=== PATIENT | male | born 1980 | race Caucasian/White ===

== ENCOUNTER 2016-12-26 13:33 | Observation (INO) ==
[2016-12-26] MEDS ORDERED: *HR* LORazepam 2 MG/ML VIAL IVP ONE (13:48)
[2016-12-26] MEDS ORDERED: *HR* LORazepam 2 MG/ML VIAL IM ONE ×2 (13:54→18:48)
--- NOTE | 2016-12-26 14:04 | Emergency Department Note ---
Disposition Clinical Impression: Suicidal ideation, Homicidal ideation Disposition: Admitted As Inpatient Condition: Fair Referrals: NO,PCP [Primary Care Provider] - Forms: ED Satisfaction Letter Time of Disposition: 18:35 Psych HPI - General Chief Complaint: ED Psychiatric Symptoms Stated Complaint: HI/METH Source: patient, EMS Nursing Notes Reviewed: Yes Vital Signs Reviewed: Yes - History of Present Illness HPI Narrative: Patient is a 36-year-old male who presents to [facility] ED with a chief complaint of homicidal and suicidal ideation. States he last took meth approximately 2 days ago. States he has been having thoughts of killing someone who wronged him in the past as well as killing himself. Denies having an active plan. Denies any nausea, vomiting, fever or chills. No chest pain, shortness of breath, abdominal pain, changes in urination or bowel movements. Patient is not on any medications currently. Pt complaint: suicidal ideation, other (Homicidal ideation) Duration: getting worse Improves with: none Worsens with: none Alleged intoxication: No Associated Psychiatric Symptoms: suicidal ideation, homicidal ideation, visual hallucinations (seeing people) Associated symptoms: Reports: denies other symptoms. Denies: headache, shortness of breath, nausea, vomiting Traumatic symptoms: denies traumatic injury Treatments prior to arrival: none Self harm or harm to others: admits thoughts of self harm, admits thoughts of harming others - Related Data Previous Rx's Medication Instructions Recorded Albuterol Sulfate [Albuterol 2 puff IH Q4HR #1 hfa.aer.ad 01/20/16 Inhaler] Levofloxacin [Levaquin] 750 mg PO DAILY 10 Days 01/20/16 Cyclobenzaprine [Flexeril] 10 mg PO HS PRN #5 tablet 03/13/16 Amoxicillin/Clavulanate [Augmentin] 875 mg PO BIDWM #20 tablet 08/28/16 Brompheniramine/Pseudoephed/Dm 5 ml PO Q6H #240 syrup 08/28/16 [Bromfed Dm Cough Syrup] Allergies Allergy/AdvReac Type Severity Reaction Status Date / Time No Known Allergies Allergy Verified 01/20/16 16:38 All systems ED: reviewed and negative except as stated. Past Medical History - Past Medical History Attestation: Yes The following information was validated with the patient. Source: patient Medical history: Reports: no medical history Psychiatric history: Reports: no psych history - Social History Smoking Status: Current every day smoker Smokeless Tobacco Status: Yes Alcohol use: Reports: none Drug use: Reports: cocaine, opiates, methamphetamine Physical Exam - General Limitations: no limitations General appearance: alert, anxious - Head Head exam: atraumatic, normocephalic, normal inspection - Eye Eye exam: Present: normal appearance, PERRL, EOMI - ENT ENT exam: normal exam, normal oropharynx, mucous membranes moist - Neck Neck exam: Present: normal inspection, full ROM, trachea midline - Chest Chest inspection: Present: normal inspection, symmetric chest wall rise - Respiratory Respiratory exam: Present: normal lung sounds bilaterally - Cardiovascular Cardiovascular exam: Present: regular rate, normal rhythm, normal heart sounds - Abdominal Exam Abdominal exam: Present: soft, Non-Tender. Absent: tenderness, distention, guarding, rebound, rigidity - Extremities Exam Extremities exam: Present: normal inspection, full ROM. Absent: tenderness, pedal edema - Back Exam Back exam: Present: normal inspection, full ROM. Absent: tenderness - Neurological Exam Neurological exam: Present: alert, oriented X3 - Psychiatric Psychiatric exam: Present: normal affect, normal mood - Skin Skin exam: Present: warm, dry, intact, normal color Course Course Narrative: Patient seen and examined. Homicidal and suicidal ideation. We will medically clear then call psych 1A. patient did have what appears to be body jerking motions. He was given 1 mg of IM Ativan. - Reevaluation(s) Reevaluation #1: Patient wanting to sign himself out AMA. We will need to pink slip him due to his homicidal and suicidal ideation. Time: 15:25 Reevaluation #2: Patient's urine positive for amphetamines, opiates, cocaine. Otherwise lab work unremarkable. Patient is medically cleared for psych consultation. 1A called. Time: 16:00 Reevaluation #3: Patient has been accepted for admission by psychiatry. Bed request submitted. Time: 18:34 Vital Signs Temperature 97.9 F 12/26/16 13:35 Pulse Rate 95 12/26/16 13:35 Respiratory Rate 20 12/26/16 13:35 Blood Pressure 130/85 12/26/16 13:35 O2 Sat by Pulse Oximetry 97 12/26/16 13:35 Temperature 97.9 F 12/26/16 13:35 Pulse Rate 95 12/26/16 13:35 Respiratory Rate 20 12/26/16 13:35 Blood Pressure 130/85 12/26/16 13:35 O2 Sat by Pulse Oximetry 97 12/26/16 13:35 Oxygen Delivery Oxygen Delivery Room Air Psych - Medical Records Medical records reviewed: Yes I reviewed the patient's medical records. - Lab Data Lab results reviewed: Yes I reviewed the patient's lab results. Result diagrams: 12/26/16 14:25 12/26/16 14:25 Lab Results 12/26/16 12/26/16 12/26/16 Range/Units 14:25 14:25 15:12 WBC 9.9 (4.3-11.1) K/mcL RBC 4.57 (4.19-5.50) M/mcL Hgb 13.7 (12.9-16.9) g/dL Hct 40.5 (37.5-50.1) % MCV 88.6 (83.0-100.0) fL MCH 30.0 (28.0-33.3) pg MCHC 33.8 (31.6-35.5) g/dL RDW 12.1 (11.5-14.5) % Plt Count 226 (140-400) K/mcL MPV 9.6 (9.4-12.4) fL Immature Gran % 0.3 (0-4) % Seg Neutrophils % 65.0 % Lymphocytes % 20.5 % Monocytes % 8.5 % Eosinophils % 5.4 % Basophils % 0.3 % Neutrophils # 6.4 (1.6-8.9) K/mcL Lymphocytes # 2.0 (0.6-4.6) K/mcL Monocytes # 0.8 (0.0-1.3) K/mcL Eosinophils # 0.5 (0.0-0.6) K/mcL Basophils # 0.0 (0.0-0.2) K/mcL Immature Plt Fraction 2.3 (1.1-6.1) % Sodium 142 (136-145) mEq/L Potassium 3.7 (3.5-4.5) mEq/L Chloride 107 (98-109) mEq/L Carbon Dioxide 26 (19-29) mEq/L BUN 10 (8-26) mg/dL Creatinine 0.93 (0.72-1.25) mg/dL Est GFR ( Amer) > 60 (> 60) Est GFR (Non-Af Amer) > 60 (> 60) BUN/Creatinine Ratio 11 (6-26) Glucose 106 H (70-99) mg/dL Calculated Osmolality 293 (280-300) Calcium 9.0 (8.6-10.8) mg/dL TSH 2.025 (0.350-4.840) mcIU/mL Urine Color Dark Yellow (Yellow) Urine Clarity Clear (Clear) Urine pH 6.5 (5.0-8.0) pH Units Ur Specific [place] > 1.030 H (1.010-1.025) Urine Protein Trace (Neg-Trace) mg/dL Urine Glucose (UA) Normal (Normal) mg/dL Urine Ketones Trace H (Negative) mg/dL Urine Blood Negative (Negative) Urine Nitrite Negative (Negative) Urine Bilirubin Small H (Negative) Urine Urobilinogen Normal (Normal) mg/dL Ur Leukocyte Esterase Negative (Negative) Urine Microscopic RBC 0-3 (0-3) per hpf Urine Microscopic WBC 0-3 (0-3) per hpf Ur Squamous Epith Cells Moderate H (None-Few) per lpf Urine Bacteria None Seen (None-Few) per hpf Hyaline Casts None Seen (None-Few) per lpf Salicylates < 5.0 L (15-30) mg/dL Urine Opiates Screen (Dlzqts=782) ng/mL Acetaminophen < 1.0 L (10-30) mcg/mL Ur Barbiturates Screen (Jlsrkx=486) ng/mL Ur Phencyclidine Scrn (Cutoff=25) ng/mL Ur Amphetamines Screen (Dovpql=0648) ng/mL U Benzodiazepines Scrn (Njvxpp=536) ng/mL Urine Cocaine Screen (Cutoff= 300) ng/mL U Marijuana (THC) Screen (Cutoff = 50) ng/mL Ethyl Alcohol < 10 (0-10) mg/dL 12/26/16 Range/Units 15:12 WBC (4.3-11.1) K/mcL RBC (4.19-5.50) M/mcL Hgb (12.9-16.9) g/dL Hct (37.5-50.1) % MCV (83.0-100.0) fL MCH (28.0-33.3) pg MCHC (31.6-35.5) g/dL RDW (11.5-14.5) % Plt Count (140-400) K/mcL MPV (9.4-12.4) fL Immature Gran % (0-4) % Seg Neutrophils % % Lymphocytes % % Monocytes % % Eosinophils % % Basophils % % Neutrophils # (1.6-8.9) K/mcL Lymphocytes # (0.6-4.6) K/mcL Monocytes # (0.0-1.3) K/mcL Eosinophils # (0.0-0.6) K/mcL Basophils # (0.0-0.2) K/mcL Immature Plt Fraction (1.1-6.1) % Sodium (136-145) mEq/L Potassium (3.5-4.5) mEq/L Chloride (98-109) mEq/L Carbon Dioxide (19-29) mEq/L BUN (8-26) mg/dL Creatinine (0.72-1.25) mg/dL Est GFR ( Amer) (> 60) Est GFR (Non-Af Amer) (> 60) BUN/Creatinine Ratio (6-26) Glucose (70-99) mg/dL Calculated Osmolality (280-300) Calcium (8.6-10.8) mg/dL TSH (0.350-4.840) mcIU/mL Urine Color (Yellow) Urine Clarity (Clear) Urine pH (5.0-8.0) pH Units Ur Specific [place] (1.010-1.025) Urine Protein (Neg-Trace) mg/dL Urine Glucose (UA) (Normal) mg/dL Urine Ketones (Negative) mg/dL Urine Blood (Negative) Urine Nitrite (Negative) Urine Bilirubin (Negative) Urine Urobilinogen (Normal) mg/dL Ur Leukocyte Esterase (Negative) Urine Microscopic RBC (0-3) per hpf Urine Microscopic WBC (0-3) per hpf Ur Squamous Epith Cells (None-Few) per lpf Urine Bacteria (None-Few) per hpf Hyaline Casts (None-Few) per lpf Salicylates (15-30) mg/dL Urine Opiates Screen Positive H (Ddrcqx=227) ng/mL Acetaminophen (10-30) mcg/mL Ur Barbiturates Screen Negative (Bhjfqh=436) ng/mL Ur Phencyclidine Scrn Negative (Cutoff=25) ng/mL Ur Amphetamines Screen Positive H (Nedezc=2923) ng/mL U Benzodiazepines Scrn Negative (Yjehms=024) ng/mL Urine Cocaine Screen Positive H (Cutoff= 300) ng/mL U Marijuana (THC) Screen Negative (Cutoff = 50) ng/mL Ethyl Alcohol (0-10) mg/dL Psychiatric Medical Clearance - Medical Clearance Checklist Does the patient have a NEW psychiatric condition?: Yes Any abnormalities indicating possible medical illness?: No Any history of medical issues?: No Medical History: No Social History Section defined Any abnormal vital signs prior to transfer?: No Current Vitals: Last Vital Signs Temp 97.9 F 12/26/16 13:35 Pulse 95 12/26/16 13:35 Resp 20 12/26/16 13:35 BP 130/85 12/26/16 13:35 Pulse Ox 97 12/26/16 13:35 Is the patient intoxicated or cognitively impaired?: No Psychiatric Lab Panel: Drug Levels and Toxicity 12/26/16 12/26/16 14:25 15:12 Urine Opiates Screen Positive H Acetaminophen < 1.0 L Ur Barbiturates Screen Negative Ur Phencyclidine Scrn Negative Ur Amphetamines Screen Positive H U Benzodiazepines Scrn Negative Urine Cocaine Screen Positive H U Marijuana (THC) Screen Negative Ethyl Alcohol < 10 Any abnormalities on the physical exam?: No Any abnormal labs?: Yes (UDS) Abnormal Labs: Abnormal lab results Glucose 106 mg/dL (70-99) H 12/26/16 14:25 Ur Specific [place] > 1.030 (1.010-1.025) H 12/26/16 15:12 Urine Ketones Trace mg/dL (Negative) H 12/26/16 15:12 Urine Bilirubin Small (Negative) H 12/26/16 15:12 Ur Squamous Epith Cells Moderate per lpf (None-Few) H 12/26/16 15:12 Salicylates < 5.0 mg/dL (15-30) L 12/26/16 14:25 Urine Opiates Screen Positive ng/mL (Plchxo=267) H 12/26/16 15:12 Acetaminophen < 1.0 mcg/mL (10-30) L 12/26/16 14:25 Ur Amphetamines Screen Positive ng/mL (Kbihix=5574) H 12/26/16 15:12 Urine Cocaine Screen Positive ng/mL (Cutoff= 300) H 12/26/16 15:12 Does the patient require durable medical equiptment?: No Is the patient ambulatory?: Yes Is the patient a fall risk?: No Has the patient been medically cleared?: Yes Any acute medical condition require Tx prior to transfer?: No Statement of Medical Clearance: I have evaluated the patient, reviewed diagnostic information, and certify that the patient's medical condition is sufficiently stable that transfer to the psychiatric unit does not pose a significant risk of deterioration. Attestation Statement - Attestation Attestation: I examined this patient and my medical decision-making was reviewed with the ENGLISH FACULTY MEMBER/PA/Advanced Practice Nurse/Resident Physician. I agree with the documented findings, disposition and treatment plan as described except to the extent set forth below.
[2016-12-26 14:32] LABS: Basophils % 0.3 %; Eosinophils # 0.5 K/mcL (0.0-0.6); Eosinophils % 5.4 %; Hematocrit 40.5 % (37.5-50.1); Hemoglobin 13.7 g/dL (12.9-16.9); Immature Granulocytes % 0.3 % (0-4); Immature Platelets 2.3 % (1.1-6.1); Lymphocytes % 20.5 %; Mean Corpuscular HGB Conc 33.8 g/dL (31.6-35.5); Mean Corpuscular Volume 88.6 fL (83.0-100.0); Mean Platelet Volume 9.6 fL (9.4-12.4); Monocytes # 0.8 K/mcL (0.0-1.3); Monocytes % 8.5 %; Neutrophils # 6.4 K/mcL (1.6-8.9); Platelet Count 226 K/mcL (140-400); Red Blood Count 4.57 M/mcL (4.19-5.50); Red Cell Distribution Width 12.1 % (11.5-14.5)
[2016-12-26 14:47] LABS: Acetaminophen < 1.0 mcg/mL (10-30); BUN/Creatinine Ratio 11 (6-26); Blood Urea Nitrogen 10 mg/dL (8-26); Carbon Dioxide 26 mEq/L (19-29); Chloride 107 mEq/L (98-109); Ethanol < 10 mg/dL (0-10); Glucose 106 mg/dL (70-99); Osmolality,Calculated 293 (280-300); Potassium 3.7 mEq/L (3.5-4.5); Salicylate < 5.0 mg/dL (15-30); Sodium 142 mEq/L (136-145); eGFR For African Americans > 60 (> 60); eGFR For Non-African Americans > 60 (> 60)
[2016-12-26 15:07] LABS: Thyroid Stimulating Hormone 2.025 mcIU/mL (0.350-4.840)
[2016-12-26 15:34] LABS: Bilirubin,Urine Small (Negative); Blood,Urine Negative (Negative); Clarity,Urine Clear (Clear); Color,Urine Dark Yellow (Yellow); Glucose,Urine (UA) Normal (Normal); Ketones,Urine Trace mg/dL (Negative); Leukocyte Esterase,Urine Negative (Negative); Nitrite,Urine Negative (Negative); PH,Urine 6.5 pH Units (5.0-8.0); Protein,Urine Trace mg/dL (Neg-Trace); Specific Gravity,Urine > 1.030 (1.010-1.025); Urobilinogen,Urine Normal (Normal)
[2016-12-26 15:37] LABS: Bacteria,Urine None Seen per hpf (None-Few); Hyaline Casts,Urine None Seen per lpf (None-Few); RBC,Urine 0-3 per hpf (0-3); Squamous Epithelial Cell,Urine Moderate per lpf (None-Few); WBC,Urine 0-3 per hpf (0-3)
[2016-12-26 15:41] LABS: Amphetamine Screen,Urine Positive ng/mL (Cutoff=1000); Barbiturate Screen,Urine Negative ng/mL (Cutoff=200); Benzodiazepines Screen,Urine Negative ng/mL (Cutoff=200); Cannabinoid Screen,Urine Negative ng/mL (Cutoff = 50); Cocaine Screen,Urine Positive ng/mL (Cutoff= 300); Opiate Screen,Urine Positive ng/mL (Cutoff=300); Phencyclidine Screen,Urine Negative ng/mL (Cutoff=25)
[2016-12-26] MEDS ORDERED: MOM Conc 10 ML UD.LIQ PO PRN (18:40)
[2016-12-26] MEDS ORDERED: Haloperidol Lactate 5 MG/ML VIAL IM PRN ×2 (18:40→18:45)
[2016-12-26] MEDS ORDERED: Ibuprofen 400 MG TABLET PO PRN (18:40)
[2016-12-26] MEDS ORDERED: hydrOXYzine pamoate 25 MG CAPSULE PO PRN (18:40)
[2016-12-26] MEDS ORDERED: traZODone 50 MG TABLET PO PRN (18:40)
[2016-12-26] MEDS ORDERED: *HR* LORazepam 2 MG/ML VIAL IM PRN ×2 (18:40→18:47)
[2016-12-26] MEDS ORDERED: *HR* LORazepam 1 MG TABLET PO PRN ×2 (18:40→18:47)
[2016-12-26] MEDS ORDERED: Mag Hydrox/Al Hydrox/Simeth 30 ML UDC PO PRN (18:40)
[2016-12-26] MEDS ORDERED: *HR* LORazepam 2 MG/ML VIAL ONE (18:52)
[2016-12-26] MEDS ORDERED: Nicotine 2 MG GUM BC PRN (21:20)
--- NOTE | 2016-12-27 11:25 | Discharge Summary ---
Date of Encounter: 12/27/16 Time of Encounter: 11:21 History of Present Illness Chief complaint: Homicidal ideation Admitted From: Emergency Dept History of Present Illness: Mr. Alonzo is a 36 year old male admitted from the emergency department for evaluation, homicidal ideation and intoxication or methamphetamine cocaine and opiates. Patient had no previous history of any psychiatric treatment or hospitalization. He currently is on parole for multiple charges including robbery and assault, he was imprisoned for several years and released in 2013 accordant records. Patient was agitated and required restraints and medication to control his behavior, later on he denied any s homicidal ideation and stated that his behavior was reaction to meth which he used for first time. Past Med Surg Social Fam HX - Past Medical History Medical history: no medical history - Past Psychiatric History Psychiatric history: Reports: no psych history - Social History Smoking Status: Current every day smoker Smokeless Tobacco Status: Yes Alcohol use: none Drug use: cocaine, opiates, methamphetamine Medications - Discharge Medications Albuterol Sulfate [Albuterol Inhaler] 2 puff IH Q4HR #1 hfa.aer.ad 01/20/16 [Rx] Levofloxacin [Levaquin] 750 mg PO DAILY 10 Days 01/20/16 [Rx] Cyclobenzaprine [Flexeril] 10 mg PO HS PRN #5 tablet 03/13/16 [Rx] Amoxicillin/Clavulanate [Augmentin] 875 mg PO BIDWM #20 tablet 08/28/16 [Rx] Brompheniramine/Pseudoephed/Dm [Bromfed Dm Cough Syrup] 5 ml PO Q6H #240 syrup 08/28/16 [Rx] Allergies No Known Allergies Allergy (Verified 01/20/16 16:38) Review of Systems Psychiatric: Reports: homicidal ideation, irritability Mental Status Exam - Mental Status Exam Patient orientation: Yes Person, Yes Time, Yes Place Level of alertness: Alert Patient appearance: Appropriate, Unkempt, Disheveled Behavior: calm, cooperative Psychomotor activity: Normal Eye contact: Minimal Contact Mood description: Euthymic/stable, Anxious Affect description: congruent with mood, constricted, dysphoric Speech pattern: Normal rate, Normal rhythm, Normal tone Speech Volume: Normal Thought process: Linear, Goal Oriented Thought Content: No Suicidal ideation, No Homicidal ideation, No Overt delusions Perceptual Disturbances: No Auditory hallucinations, No Visual hallucinations Judgment: Limited Insight: Partial Results - Vital Signs Vital signs: Temp Pulse Resp BP Pulse Ox 98.4 F 57 18 135/84 97 12/26/16 20:16 12/26/16 20:16 12/26/16 20:16 12/26/16 20:16 12/26/16 18:36 - Labs Labs: Laboratory Last Values WBC 9.9 K/mcL (4.3-11.1) 12/26/16 14:25 RBC 4.57 M/mcL (4.19-5.50) 12/26/16 14:25 Hgb 13.7 g/dL (12.9-16.9) 12/26/16 14:25 Hct 40.5 % (37.5-50.1) 12/26/16 14:25 MCV 88.6 fL (83.0-100.0) 12/26/16 14:25 MCH 30.0 pg (28.0-33.3) 12/26/16 14:25 MCHC 33.8 g/dL (31.6-35.5) 12/26/16 14:25 RDW 12.1 % (11.5-14.5) 12/26/16 14:25 Plt Count 226 K/mcL (140-400) 12/26/16 14:25 MPV 9.6 fL (9.4-12.4) 12/26/16 14:25 Immature Gran % 0.3 % (0-4) 12/26/16 14:25 Seg Neutrophils % 65.0 % 12/26/16 14:25 Lymphocytes % 20.5 % 12/26/16 14:25 Monocytes % 8.5 % 12/26/16 14:25 Eosinophils % 5.4 % 12/26/16 14:25 Basophils % 0.3 % 12/26/16 14:25 Neutrophils # 6.4 K/mcL (1.6-8.9) 12/26/16 14:25 Lymphocytes # 2.0 K/mcL (0.6-4.6) 12/26/16 14:25 Monocytes # 0.8 K/mcL (0.0-1.3) 12/26/16 14:25 Eosinophils # 0.5 K/mcL (0.0-0.6) 12/26/16 14:25 Basophils # 0.0 K/mcL (0.0-0.2) 12/26/16 14:25 Immature Plt Fraction 2.3 % (1.1-6.1) 12/26/16 14:25 Sodium 142 mEq/L (136-145) 12/26/16 14:25 Potassium 3.7 mEq/L (3.5-4.5) 12/26/16 14:25 Chloride 107 mEq/L (98-109) 12/26/16 14:25 Carbon Dioxide 26 mEq/L (19-29) 12/26/16 14:25 BUN 10 mg/dL (8-26) 12/26/16 14:25 Creatinine 0.93 mg/dL (0.72-1.25) 12/26/16 14:25 Est GFR ( Amer) > 60 (> 60) 12/26/16 14:25 Est GFR (Non-Af Amer) > 60 (> 60) 12/26/16 14:25 BUN/Creatinine Ratio 11 (6-26) 12/26/16 14:25 Glucose 106 mg/dL (70-99) H 12/26/16 14:25 Calculated Osmolality 293 (280-300) 12/26/16 14:25 Calcium 9.0 mg/dL (8.6-10.8) 12/26/16 14:25 TSH 2.025 mcIU/mL (0.350-4.840) 12/26/16 14:25 Urine Color Dark Yellow (Yellow) 12/26/16 15:12 Urine Clarity Clear (Clear) 12/26/16 15:12 Urine pH 6.5 pH Units (5.0-8.0) 12/26/16 15:12 Ur Specific [place] > 1.030 (1.010-1.025) H 12/26/16 15:12 Urine Protein Trace mg/dL (Neg-Trace) 12/26/16 15:12 Urine Glucose (UA) Normal mg/dL (Normal) 12/26/16 15:12 Urine Ketones Trace mg/dL (Negative) H 12/26/16 15:12 Urine Blood Negative (Negative) 12/26/16 15:12 Urine Nitrite Negative (Negative) 12/26/16 15:12 Urine Bilirubin Small (Negative) H 12/26/16 15:12 Urine Urobilinogen Normal mg/dL (Normal) 12/26/16 15:12 Ur Leukocyte Esterase Negative (Negative) 12/26/16 15:12 Urine Microscopic RBC 0-3 per hpf (0-3) 12/26/16 15:12 Urine Microscopic WBC 0-3 per hpf (0-3) 12/26/16 15:12 Ur Squamous Epith Cells Moderate per lpf (None-Few) H 12/26/16 15:12 Urine Bacteria None Seen per hpf (None-Few) 12/26/16 15:12 Hyaline Casts None Seen per lpf (None-Few) 12/26/16 15:12 Salicylates < 5.0 mg/dL (15-30) L 12/26/16 14:25 Urine Opiates Screen Positive ng/mL (Jqfkdh=707) H 12/26/16 15:12 Acetaminophen < 1.0 mcg/mL (10-30) L 12/26/16 14:25 Ur Barbiturates Screen Negative ng/mL (Aazgvf=179) 12/26/16 15:12 Ur Phencyclidine Scrn Negative ng/mL (Cutoff=25) 12/26/16 15:12 Ur Amphetamines Screen Positive ng/mL (Raqhuh=7414) H 12/26/16 15:12 U Benzodiazepines Scrn Negative ng/mL (Nbyvgf=523) 12/26/16 15:12 Urine Cocaine Screen Positive ng/mL (Cutoff= 300) H 12/26/16 15:12 U Marijuana (THC) Screen Negative ng/mL (Cutoff = 50) 12/26/16 15:12 Ethyl Alcohol < 10 mg/dL (0-10) 12/26/16 14:25 Diagnosis - Discharge Diagnosis (1) Drug-induced psychotic disorder Status: Acute Qualifiers: Complication of substance-induced condition: with unspecified complication Qualified Code(s): F19.959 - Other psychoactive substance use, unspecified with psychoactive substance-induced psychotic disorder, unspecified (2) Methamphetamine abuse Status: Acute Assessment and Plan - Patient/Caregiver Discharge Instructions Activity: resume usual activities as tolerated Diet: regular diet - Follow up Plan Follow up with: NO,PCP [Primary Care Provider] - Functional capacity at discharge: independent ambulation Overall status at discharge: Stable Disposition: Home, Self-Care Provider Date of admission: 12/26/16 18:37 Primary care physician: PCP HILARIO Discharging clinician: [facility] Course Hospital course: Mr. Alonzo is a 36 year old male admitted to homicidal ideation and intoxication with methamphetamine and cocaine. On the unit patient was agitated and combative and required medication and restraints to keep safe. He was medicated and slept. This morning he presents calm and cooperative denies any homicidal ideation and any knowledge that drugs affected his behavior. 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 He is discharged in stable condition, non-homicidal, not psychotic or suicidal. Follow-up plans as per discharge document by social work. - Time Spent with Patient Total time spent providing and/or coordinating discharge services: Greater than 30 minutes Procedures - Procedures Procedures: Medication Management, Crisis Stabilization, Psychoeducational Therapy Quality - Multiple Antipsychotics Patient discharged on 2 or more antipsychotic medications: No
[2016-12-27 11:42] VITALS: BP 142/110
== END 2016-12-27 12:30 | disposition home or self-care (01) ==
LOC: EMEROO 13:33 → SUATTDRO 18:37 → INTOOBSV 18:37 → 1ANU 18:37
PROVIDERS: ADMIT Student in an Organized Health Care Education/Training Program; ATTEND Psychiatry & Neurology Psychiatry

== ENCOUNTER 2017-05-17 03:02 | Observation (INO) ==
--- NOTE | 2017-05-17 03:25 | Internal Med History&Physical ---
Date of Encounter: 05/17/17 Time of Encounter: 03:00 Assessment and Plan (1) Endocarditis Current visit: Yes Status: Acute There was some concern at [facility] for Endocarditis given h/o IVDU and abscess Admit Observation Will need ECHO in AM. Will Follow up Blood cx Send off MRSA Surviellance swab Empiric Vancomycin for now Qualifiers: Endocarditis type: unspecified Chronicity: unspecified Qualified Code(s) : I38 - Endocarditis, valve unspecified (2) Abscess of right arm Current visit: No Status: Acute s/p I&D Will follow up cx wound care consult (3) Chest pain Current visit: Yes Status: Acute Will trend Trop ECHO ordered Serial EKGs Telemetry monitoring for now. Qualifiers: Chest pain type: chest pain due to myocardial ischemia Ischemic chest pain type: stable angina pectoris Qualified Code(s): I20.8 - Other forms of angina pectoris Code(s): R07.9 - Chest pain, unspecified SNOMED Code(s): 55917822 (4) Methamphetamine abuse Current visit: Yes Status: Acute Will need counselling on cessation Code(s): F15.10 - Other stimulant abuse, uncomplicated SNOMED Code(s): 511457748 (5) Nicotine dependence Current visit: Yes Status: Chronic Will be given a Nicotine patch Qualifiers: Nicotine product type: cigarettes Substance use status: uncomplicated Qualified Code(s): F17.210 - Nicotine dependence, cigarettes, uncomplicated Internal Medicine - H&P: HPI Chief complaint: Right forearm swelling Admitted From: Hospital to Hospital Transfer Plans for Post Hospital Care: Home History of present illness: Mr. Alonzo is a 36 year old male with h/o IV drug use ( last used on Tuesday) presented to the [facility] ER with painful swelling of right AC fossa last evening. He noted that he has been experiencing the swelling for past day or so at the site where he injected his drugs. He denies any fevers, chills, nausea or vomiting. He did experience some chest pains while at [facility] and so he was transferred her for further evaluation. He also had I&D of the area at [facility]. No other acute issues. estimated LOS less than 2 midnights Past Med Surg Social Fam HX - Past Medical History Medical history: no medical history Psychiatric history: depression, previous psychiatric hospitalization - Social History Smoking Status: Current every day smoker Smokeless Tobacco Status: No Alcohol use: occasionally Drug use: cocaine, opiates, methamphetamine Internal Medicine - H&P: Meds No Known Home Drugs 05/16/17 [History] 3 Allergy/AdvReac Type Severity Reaction Status Date / Time No Known Allergies Allergy Verified 05/16/17 21:06 All Systems PM: A 10-system review of systems was performed and is negative for pertinent findings except as documented above in the HPI. - Constitutional Vitals: Temp Pulse Resp BP Pulse Ox 97.6 F 86 16 116/83 97 05/17/17 03:11 05/17/17 03:11 05/17/17 03:11 05/17/17 03:11 05/17/17 03:11 General appearance: Present: mild distress, A&O X 3 Exam: c/o pain at site of I&D - Head Head exam: Present: atraumatic, normal inspection, normocephalic - Eye Eye exam: Present: EOMI, PERRL Pupils: Present: PERRL - ENT ENT exam: Present: mucous membranes moist, normal external ear exam, normal oropharynx - Neck Neck exam general surgery: Present: full ROM, supple, trachea midline - Respiratory Respiratory exam: Present: CTAB - Cardiovascular Cardiovascular exam: Present: RRR, +S1, +S2 - GI/Abdominal GI/Abdominal exam: Present: normal bowel sounds, soft, no peritoneal signs - Extremities Exam Extremities exam: Present: tenderness, warm Additional comments: rt AC, wound packed. - [place]ison Incision: Present: red, swollen, erythema - Neurological Exam Neurological exam: Present: oriented X3, no focal deficits - Psychiatric Psychiatric exam: Present: normal affect, normal mood - Skin Skin exam: Present: erythema, warm Internal Med - H&P Results - Labs Labs: Reviewed from [facility] CBC WNL AST/ALT 46/108 ALP 139 - Diagnostic Studies Other Images Additional comments: At [place]: 1) XR/XR elbow complete RT IMPRESSION: 1. No acute osseous abnormality the left level. 2. Anterior and medial soft tissue swelling. No radiopaque foreign body. 2) CXR: No acute process
[2017-05-17] MEDS ORDERED: Acetaminophen 325 MG TABLET PO PRN ×2 (03:26→14:30)
[2017-05-17] MEDS ORDERED: Naloxone 0.4 MG/ML INJ IVP PRN (03:26)
[2017-05-17] MEDS: *HR* HYDROmorphone (PF) 1 MG/ML SYRINGE IVP PRN ×2 (03:34→11:17)
[2017-05-17] MEDS: Ketorolac 30 MG/ML VIAL IVP PRN ×3 (03:34→20:47)
[2017-05-17] MEDS: 0.9 % Sodium Chloride 1,000 ML IVC SCH ×2 (03:55→20:48)
[2017-05-17] MEDS ORDERED: Vancomycin 1,250 MG in D5% in Water 250 ML IVPB SCH (04:00)
[2017-05-17] MEDS: Nicotine 21 MG PATCH.TD24 TD SCH ×2 (04:01→06:15)
[2017-05-17] MEDS: Vancomycin 1,250 MG in D5% in Water 250 ML IVPB SCH ×2 (06:16→17:22)
[2017-05-17] MEDS ORDERED: *HR* HYDROmorphone (PF) 1 MG/ML SYRINGE IM ONE (06:23)
[2017-05-17 06:32] LABS: Basophils % 0.1 %; Eosinophils # 0.3 K/mcL (0.0-0.6); Eosinophils % 3.1 %; Hematocrit 40.9 % (37.5-50.1); Hemoglobin 13.5 g/dL (12.9-16.9); Immature Granulocytes % 0.5 % (0-4); Lymphocytes # 1.9 K/mcL (0.6-4.6); Lymphocytes % 22.1 %; Mean Corpuscular Hemoglobin 30.2 pg (28.0-33.3); Mean Corpuscular Volume 91.5 fL (83.0-100.0); Mean Platelet Volume 9.1 fL (9.4-12.4); Monocytes # 0.8 K/mcL (0.0-1.3); Neutrophils # 5.5 K/mcL (1.6-8.9); Platelet Count 209 K/mcL (140-400); Red Blood Count 4.47 M/mcL (4.19-5.50); Red Cell Distribution Width 13.2 % (11.5-14.5); Segmented Neutrophils % 65.2 %
[2017-05-17 06:38] LABS: INR 1.1; Prothrombin Time 11.8 Seconds (9.4-12.1)
[2017-05-17 06:53] LABS: Alanine Aminotransferase 75 Units/L (0-55); Albumin 3.1 g/dL (3.5-5.0); Albumin/Globulin Ratio 1.2 (1.1-2.2); Alkaline Phosphatase 110 Units/L (38-126); Aspartate Amino Transferase 31 Units/L (5-34); BUN/Creatinine Ratio 15 (6-26); Bilirubin,Direct 0.3 mg/dL (0.0-0.5); Bilirubin,Indirect 0.2 mg/dL (0.0-1.2); Bilirubin,Total 0.5 mg/dL (0.2-1.2); Blood Urea Nitrogen 13 mg/dL (8-26); Calcium 8.2 mg/dL (8.6-10.8); Carbon Dioxide 24 mEq/L (19-29); Chloride 113 mEq/L (98-109); Globulin 2.5 g/dL (2.4-3.5); Glucose 114 mg/dL (70-99); Magnesium 1.8 mg/dL (1.6-2.6); Osmolality,Calculated 293 (280-300); Phosphorous 4.2 mg/dL (2.3-4.7); Potassium 4.2 mEq/L (3.5-4.5); Sodium 141 mEq/L (136-145); Total Protein 5.6 g/dL (6.0-8.3); eGFR For African Americans > 60 (> 60); eGFR For Non-African Americans > 60 (> 60)
--- NOTE | 2017-05-17 07:37 | Event Note ---
<Sae Davidson - Last Filed: 05/17/17 14:52> Date of Encounter: 05/17/17 Time of Encounter: 07:36 Patient seen and examined. Patient reports pain in right elbow. Dressing changed at beside. Last Vital Signs Temp 97.8 F 05/17/17 11:35 Pulse 87 05/17/17 11:35 Resp 16 05/17/17 11:35 BP 121/77 05/17/17 11:35 Pulse Ox 98 05/17/17 11:35 Physical Exam: GENERAL: WN/WD male in NAD HEENT: MMM, oropharynx clear CV: RRR, no M/R/G RESP: CTAB GI: Abd soft, NT, positive BS EXTREMITIES: 2cm incision right AC region with 1cm Iodaform packing in place, no purulent drainage or bleeding. Mild serosanguinous drainage on dressing. 10cm x 15cm area of surrounding erythema with border outlined by skin marker, no proximal streaking, no lymphademopathy, mild decreased ROM right elbow secondary to pain. No Osler nodes, Janeway lesions, or splinter hemorrhages SKIN: multiple tattoos, prior surgical incision well healed or right ankle hardware insertion site Assessment: 1) Right Arm Abscess 2) Methamphetamine abuse 3) Nicotine dependence 4) DVT prophylaxis Plan: 1) S/p I&D in ED. No leukocytosis, ESR 10, CRP 8 TTE reveals LVEF 60%, no valvular dysfunction or vegetations. Anticipate ARMANDO if blood cultures positive to r/o endocarditis Blood and wound cultures pending. Contact precautions Will stop Dilaudid and switch to Ibuprofen, Tylenol, Toradol as needed for break through pain, and Morphine PRN severe pain. Allow right arm wound to heal by secondary intention. Wound care consulted for continued dressing changes and to educate patient on packing wound. 2) Counselled on IVDU cessation 3) Continue Nicotine patch. Tobacco cessation discussed 4) Encourage ambulation. Patient understood, agreed to, and repeated the plan. All questions answered. Family at bedside. <Corey Alvarado - Last Filed: 05/17/17 18:29> Date of Encounter: 05/17/17 Pt was admitted earlier this AM for potential endocarditis. Echo is normal blood cx pending. Exam Alert. Comfortable Dressing intact over antecubital space Plan Continue abx Await blood cx.
[2017-05-17] MEDS: Piperacillin/Tazobactam 3.375 GM in D5% in Water (Mini-Bag+) 100 ML IVPB SCH ×2 (12:41→20:48)
[2017-05-17] MEDS: *HR* Morphine 2 MG/ML SYRINGE IVP PRN (17:20)
[2017-05-17] MEDS: Ibuprofen 800 MG TABLET PO SCH (17:20)
[2017-05-17] MEDS: Sennosides 8.6 MG TABLET PO SCH (20:48)
[2017-05-18] MEDS: Ibuprofen 800 MG TABLET PO SCH ×3 (01:03→14:53)
[2017-05-18] MEDS: *HR* Morphine 2 MG/ML SYRINGE IVP PRN ×5 (01:08→19:50)
[2017-05-18] MEDS: Piperacillin/Tazobactam 3.375 GM in D5% in Water (Mini-Bag+) 100 ML IVPB SCH ×3 (04:20→19:56)
[2017-05-18 05:15] LABS: Hematocrit 39.9 % (37.5-50.1); Hemoglobin 13.3 g/dL (12.9-16.9); Mean Corpuscular HGB Conc 33.3 g/dL (31.6-35.5); Mean Corpuscular Hemoglobin 30.2 pg (28.0-33.3); Mean Corpuscular Volume 90.7 fL (83.0-100.0); Mean Platelet Volume 9.7 fL (9.4-12.4); Platelet Count 201 K/mcL (140-400); Red Cell Distribution Width 13.2 % (11.5-14.5)
[2017-05-18 05:29] LABS: BUN/Creatinine Ratio 12 (6-26); Blood Urea Nitrogen 9 mg/dL (8-26); Calcium 8.4 mg/dL (8.6-10.8); Carbon Dioxide 22 mEq/L (19-29); Chloride 114 mEq/L (98-109); Glucose 107 mg/dL (70-99); Osmolality,Calculated 295 (280-300); Sodium 143 mEq/L (136-145); eGFR For African Americans > 60 (> 60); eGFR For Non-African Americans > 60 (> 60)
[2017-05-18] MEDS: Vancomycin 1,250 MG in D5% in Water 250 ML IVPB SCH (06:05)
--- NOTE | 2017-05-18 07:03 | Internal Med Progress Note ---
<Sae Davidson - Last Filed: 05/18/17 10:19> Date of Encounter: 05/18/17 Time of Encounter: 07:03 - Assessment and plan (1) Abscess of right arm Current Visit: Yes Status: Acute Assessment and plan: Minimal improvement in swelling and erythema at right AC region compared to yesterday S/p I&D on 05/16/17. No leukocytosis, ESR 10, CRP 8 TTE reveals LVEF 60%, no valvular dysfunction or vegetations. Anticipate ARMANDO if blood cultures positive to r/o endocarditis Blood and wound cultures show no growth to date Contact precautions Continue Ibuprofen, Tylenol, Toradol as needed for break through pain, and Morphine PRN severe pain. Allow right arm wound to heal by secondary intention. Wound care consulted for continued dressing changes and to educate patient on packing wound. Anticipate discharge on oral antibiotics once condition improved and cultures resulted (2) Methamphetamine abuse Current Visit: Yes Status: Acute Assessment and plan: Counselled on IVDU cessation (3) Nicotine dependence Current Visit: Yes Status: Chronic Assessment and plan: Continue Nicotine patch. Tobacco cessation discussed Qualifiers: Nicotine product type: cigarettes Substance use status: uncomplicated Qualified Code(s): F17.210 - Nicotine dependence, cigarettes, uncomplicated (4) DVT prophylaxis Current Visit: Yes Status: Acute Assessment and plan: Encourage ambulation. - Subjective Interval history: Patient seen and examined. Patient reports pain in right elbow despite analgesics. Blood and wound cultures show no growth to date. Patient denies fever, chills, CP, SOB, abd pain, N/V/D, or difficulty with ROM. Family at bedside. - Constitutional Vitals: Temp Pulse Resp BP Pulse Ox 99 F 59 20 113/69 97 05/18/17 05:00 05/18/17 05:00 05/18/17 05:00 05/18/17 05:00 05/18/17 05:00 General appearance: Present: cooperative, mild distress, A&O X 3, answers questions appropriately - Head Head exam: Present: atraumatic, normal inspection, normocephalic - Eye Eye exam: Present: EOMI, conjuntiva pink, sclera anicteric - ENT ENT exam: Present: mucous membranes moist, normal oropharynx - Neck Neck exam general surgery: Present: normal inspection, supple, trachea midline. Absent: tenderness - Respiratory Respiratory exam: Present: CTAB. Absent: rhonchi, wheezes - Cardiovascular Cardiovascular exam: Present: RRR, +S1, +S2 - GI/Abdominal GI/Abdominal exam: Present: normal bowel sounds, soft. Absent: distended, firm , tenderness - Extremities Exam Additional comments: 2cm incision right AC region with 1cm Iodaform packing in place, no purulent drainage or bleeding. Minimal serosanguinous drainage on dressing. Slightly imprved 10cm x 14cm area of surrounding erythema with border outlined by skin marker, no proximal streaking, no lymphademopathy, mild decreased ROM right elbow secondary to pain. No Osler nodes, Janeway lesions, or splinter hemorrhages - Incison Incision: Present: swollen, erythema, purulent Comments: 2cm incision right AC region with 1cm Iodaform packing in place, no purulent drainage or bleeding. Mild serosanguinous drainage on dressing. 10cm x 15cm area of surrounding erythema with border outlined by skin marker, no proximal streaking, no lymphademopathy, mild decreased ROM right elbow secondary to pain. No Osler nodes, Janeway lesions, or splinter hemorrhages - Back Exam Back exam: Present: normal inspection. Absent: paraspinal tenderness, tenderness - Neurological Exam Neurological exam: Present: alert, oriented X3, no focal deficits. Absent: altered, speech deficit - Psychiatric Psychiatric exam: Present: normal affect, normal mood - Skin Additional comments: 2cm incision right AC region with 1cm Iodaform packing in place, no purulent drainage or bleeding. Mild serosanguinous drainage on dressing. 10cm x 15cm area of surrounding erythema with border outlined by skin marker, no proximal streaking, no lymphademopathy, mild decreased ROM right elbow secondary to pain. No Osler nodes, Janeway lesions, or splinter hemorrhages. Multiple tattoos , prior surgical incision well healed or right ankle hardware insertion site Internal Medicine: Result - Labs CBC & Chem 7: 05/18/17 04:35 05/18/17 04:35 Labs: Short CBC 05/18/17 Range/Units 04:35 WBC 8.2 (4.3-11.1) K/mcL Hgb 13.3 (12.9-16.9) g/dL Hct 39.9 (37.5-50.1) % Plt Count 201 (140-400) K/mcL BMP 11/01/17 04:35 Sodium 143 Potassium 4.0 Chloride 114 H Carbon Dioxide 22 BUN 9 Creatinine 0.77 Glucose 107 H Calcium 8.4 L Cardiac Enzymes 05/17/17 Range/Units 13:56 Troponin I 0.00 (0-0.03) ng/mL - ABG Interpretation ABG results: PT/INR, D-dimer PT 11.8 Seconds (9.4-12.1) 05/17/17 06:18 - Pulse Oximetry Interpretation Digit-Finger Pulse Oximetry Readin (on ambient air) - Impressions Impressions Echocardiogram 05/17/17 03:26 Impressions: LVEF 60%. Normal left ventricular diastolic function. Normal right ventricular structure and function. No significant valvular dysfunction. No pulmonary hypertension. Left Ventricular Wall Motion: Rest Echo Findings All wall segments showed normal motion. Findings: Study Quality * Technically adequate exam. ECG Findings * Normal sinus rhythm. Left Ventricle * LVEF 60%. * Normal LV chamber size, wall thickness and function. * Normal left ventricular diastolic function. Right Ventricle * Normal right ventricular structure and function. Left Atrium * Normal left atrial size. Right Atrium * Normal right atrial size. Aortic Valve * No aortic regurgitation. * Trileaflet aortic valve. * Normal aortic valve structure. * No aortic stenosis. Mitral Valve * Normal mitral valve structure. * No mitral regurgitation. * No mitral stenosis. Tricuspid Valve * Normal tricuspid valve structure. * Trace tricuspid regurgitation. * Estimated RA pressure is 3 mmHg. * Estimated RVSP is 19 mmHg. * No pulmonary hypertension. Pulmonic Valve * Pulmonic valve is not well visualized. * No pulmonic stenosis. * No pulmonic regurgitation. Pulmonary Artery * Pulmonary artery not well visualized. Aorta * Normally sized aortic root. Pericardium * There is no pericardial effusion present. Interatrial Septum * No evidence of PFO by color Doppler. IVC * Normal IVC dimensions and inspiratory collapse. Consult Discharge Plan - Plan Referrals: NONE,PCP [Primary Care Provider] - <Corey Alvarado - Last Filed: 05/18/17 18:00> Date of Encounter: 05/18/17 - Assessment and plan (1) Abscess of right arm Current Visit: Yes Status: Acute (2) Methamphetamine abuse Current Visit: Yes Status: Chronic (3) Tobacco abuse Current Visit: Yes Status: Chronic - Constitutional Vitals: Temp Pulse Resp BP Pulse Ox 98.7 F 68 14 126/76 97 05/18/17 16:02 05/18/17 16:02 05/18/17 16:02 05/18/17 16:02 05/18/17 16:02 Internal Medicine: Result - Labs CBC & Chem 7: 05/18/17 04:35 05/18/17 04:35 Labs: Short CBC 05/18/17 Range/Units 04:35 WBC 8.2 (4.3-11.1) K/mcL Hgb 13.3 (12.9-16.9) g/dL Hct 39.9 (37.5-50.1) % Plt Count 201 (140-400) K/mcL BMP 05/18/17 04:35 Sodium 143 Potassium 4.0 Chloride 114 H Carbon Dioxide 22 BUN 9 Creatinine 0.77 Glucose 107 H Calcium 8.4 L - ABG Interpretation ABG results: PT/INR, D-dimer PT 11.8 Seconds (9.4-12.1) 05/17/17 06:18 - Impressions Impressions Elbow CT 05/18/17 11:00 IMPRESSION: 1. Antecubital soft tissue defect and underlying abscess measuring 3.2 x 2.7 x 3.8 cm. Surrounding cellulitis. The abscess involves an adjacent superficial vein. Consider thrombophlebitis. 2. No CT evidence of osteomyelitis. No joint effusion at the elbow. D/ / 05/18/2017 13:00:41 Bryan Galvez MD / raul Interpreting Provider: Bryan Galvez MD - Attending Attestation I examined this patient and my medical decision-making was reviewed with the Resident Physician on 05/18/17. I agree with the documented findings, disposition and treatment plan as described except to the extent set forth below. Mr Alonzo is currently in observation for L antecubital abscess s/p ID and hx of MRSA infection. Mr Alonzo still has a lot of erythema in his antecubital space. Pain is about the same. No fever or chills. Exam Alert. Comfortable at this time Mucus membranes dry Heart reg No wheeze Abd soft L antecubital is still very red I/P 1. L antecubital space abscess - CT today shows persistent abscess - surgery consulted for repeat I&D 2. Hx MRSA 3. IVDU Further diagnoses and plan as above.
[2017-05-18] MEDS: Nicotine 21 MG PATCH.TD24 TD SCH (10:03)
[2017-05-18] MEDS ORDERED: Aminoglycoside Consult 1 EACH MC ONE (10:59)
[2017-05-18] MEDS ORDERED: Lidocaine -MPF 1% 5 ML AMPUL INFILT ONE (13:46)
--- NOTE | 2017-05-18 13:54 | General Surgery Consult Note ---
<Merced Goode Patrick - Last Filed: 05/18/17 15:01> Date of Encounter: 05/18/17 Time of Encounter: 13:30 Assessment and Plan (1) Abscess of right arm Current Visit: Yes Status: Acute I&D of right upper extremity IV antibiotics- Vancomycin and Zosyn Wound cultures repeats- gram stain, aerobic and anerobic culture Daily wound care Supportive care and pain control Counseled patient regarding his drug abuse and the risks associated with illicit drug use Follow-up in outpatient wound care or surgery office in 1 week (2) Methamphetamine abuse Current Visit: Yes Status: Chronic (3) Nicotine dependence Current Visit: Yes Status: Chronic Qualifiers: Nicotine product type: cigarettes Substance use status: uncomplicated Qualified Code(s): F17.210 - Nicotine dependence, cigarettes, uncomplicated History of Present Illness Consult date: 05/18/17 Reason for consult: other (RUE abscess) Requesting physician: Corey Alvarado History of present illness: Mr. Alonzo is a 36 year old male with a past medical significant for IV drug use. He presented to [facility] with complaints of RUE tenderness and swelling. He reports that he last injected drugs 4 days ago. He did have chest pain while in [facility] and was transferred to [place] for further management. He denies any further chest pain at this time. Denies any shortness of breath. He did have an I&D complete to the right AC while in [place]. Denies any fevers/chills. He did have a CT scan complete today which shows evidence of undrained abscess to the right AC. We have been asked to see and evaluate the patient for further recommendations and treatment. Past Med Surg Social Fam HX - Past Medical History Source: patient Medical history: no medical history Psychiatric history: depression, previous psychiatric hospitalization - Social History Smoking Status: Current every day smoker Packs per day: 1.5-2 Smokeless Tobacco Status: No Alcohol use: occasionally Drug use: cocaine, opiates, methamphetamine Current living situation: Home - Independent Activity Level: Independent ambulation - Family History Mother History Unknown: Yes Medications and Allergies No Known Home Drugs 05/16/17 [History] 3 Allergy/AdvReac Type Severity Reaction Status Date / Time No Known Allergies Allergy Verified 05/16/17 21:06 Review of Systems All systems PM: reviewed and no additional remarkable complaints except as stated (focused assessment as listed in the HPI) All systems PM: A 10-system review of systems was performed and is negative for pertinent findings except as documented above in the HPI. General Surgery Exam Initial Vital Signs Temp Pulse Resp BP Pulse Ox 97.6 F 86 16 116/83 97 05/17/17 03:11 05/17/17 03:11 05/17/17 03:11 05/17/17 03:11 05/17/17 03:11 - General physical appearance well developed, well nourished, no distress - Eyes normal ocular movement - ENT normal mucosa, atraumatic, normocephalic - Neck trachea midline - Respiratory normal respiratory effort, clear to auscultation - Cardiovascular Cardiovascular exam: Present: RRR - Abdomen Abdomen general surgery: Present: soft, non tender - Incision Incision: Present: purulent (Right AC) - Integumentary Integumentary general surgery: Present: warm and dry - Neurologic Present: CN 2-12 grossly intact - Musculoskeletal Present: normal gait, normal posture - Psychiatric Psychiatric general surgery: Present: appropriate, oriented to person, oriented to place, oriented to time, speech is normal, memory intact Exam Initial Vital Signs Temp Pulse Resp BP Pulse Ox 97.6 F 86 16 116/83 97 05/17/17 03:11 05/17/17 03:11 05/17/17 03:11 05/17/17 03:11 05/17/17 03:11 Results - Labs 05/18/17 04:35 05/18/17 04:35 Abnormal lab results Chloride 114 mEq/L (98-109) H 05/18/17 04:35 Glucose 107 mg/dL (70-99) H 05/18/17 04:35 Calcium 8.4 mg/dL (8.6-10.8) L 05/18/17 04:35 ALT 75 Units/L (0-55) H 05/17/17 06:18 Serum Total Protein 5.6 g/dL (6.0-8.3) L D 05/17/17 06:18 Albumin 3.1 g/dL (3.5-5.0) L D 05/17/17 06:18 Diabetes panel 05/18/17 Range/Units 04:35 Sodium 143 (136-145) mEq/L Potassium 4.0 (3.5-4.5) mEq/L Chloride 114 H (98-109) mEq/L Carbon Dioxide 22 (19-29) mEq/L BUN 9 (8-26) mg/dL Creatinine 0.77 (0.72-1.25) mg/dL Glucose 107 H (70-99) mg/dL Calcium 8.4 L (8.6-10.8) mg/dL Calcium panel 05/18/17 Range/Units 04:35 Calcium 8.4 L (8.6-10.8) mg/dL Pituitary panel 05/18/17 Range/Units 04:35 Sodium 143 (136-145) mEq/L Potassium 4.0 (3.5-4.5) mEq/L Chloride 114 H (98-109) mEq/L Carbon Dioxide 22 (19-29) mEq/L BUN 9 (8-26) mg/dL Creatinine 0.77 (0.72-1.25) mg/dL Glucose 107 H (70-99) mg/dL Calcium 8.4 L (8.6-10.8) mg/dL Adrenal panel 05/18/17 Range/Units 04:35 Sodium 143 (136-145) mEq/L Potassium 4.0 (3.5-4.5) mEq/L Chloride 114 H (98-109) mEq/L Carbon Dioxide 22 (19-29) mEq/L BUN 9 (8-26) mg/dL Creatinine 0.77 (0.72-1.25) mg/dL Glucose 107 H (70-99) mg/dL Calcium 8.4 L (8.6-10.8) mg/dL All other labs normal. - Imaging Additional studies: Echocardiogram 05/17/17 03:26 Impressions: LVEF 60%. Normal left ventricular diastolic function. Normal right ventricular structure and function. No significant valvular dysfunction. No pulmonary hypertension. Left Ventricular Wall Motion: Rest Echo Findings All wall segments showed normal motion. Findings: Study Quality * Technically adequate exam. ECG Findings * Normal sinus rhythm. Left Ventricle * LVEF 60%. * Normal LV chamber size, wall thickness and function. * Normal left ventricular diastolic function. Right Ventricle * Normal right ventricular structure and function. Left Atrium * Normal left atrial size. Right Atrium * Normal right atrial size. Aortic Valve * No aortic regurgitation. * Trileaflet aortic valve. * Normal aortic valve structure. * No aortic stenosis. Mitral Valve * Normal mitral valve structure. * No mitral regurgitation. * No mitral stenosis. Tricuspid Valve * Normal tricuspid valve structure. * Trace tricuspid regurgitation. * Estimated RA pressure is 3 mmHg. * Estimated RVSP is 19 mmHg. * No pulmonary hypertension. Pulmonic Valve * Pulmonic valve is not well visualized. * No pulmonic stenosis. * No pulmonic regurgitation. Pulmonary Artery * Pulmonary artery not well visualized. Aorta * Normally sized aortic root. Pericardium * There is no pericardial effusion present. Interatrial Septum * No evidence of PFO by color Doppler. IVC * Normal IVC dimensions and inspiratory collapse. Elbow CT 05/18/17 11:00 IMPRESSION: 1. Antecubital soft tissue defect and underlying abscess measuring 3.2 x 2.7 x 3.8 cm. Surrounding cellulitis. The abscess involves an adjacent superficial vein. Consider thrombophlebitis. 2. No CT evidence of osteomyelitis. No joint effusion at the elbow. D/ / 05/18/2017 13:00:41 Bryan Galvez MD / [email or web address] Interpreting Provider: Bryan Galvez MD Consult Discharge Plan - Plan Referrals: NONE,PCP [Primary Care Provider] - - Attending Attestation For this encounter, I have reviewed the SCRUFF WORKER or PA documentation, treatment plan, and medical decision making; and I have had face to face time with this patient. <Ezra Patel - Last Filed: 05/18/17 18:40> Date of Encounter: 05/18/17 Review of Systems All systems PM: A 10-system review of systems was performed and is negative for pertinent findings except as documented above in the HPI. General Surgery Exam Initial Vital Signs Temp Pulse Resp BP Pulse Ox 97.6 F 86 16 116/83 97 05/17/17 03:11 05/17/17 03:11 05/17/17 03:11 05/17/17 03:11 05/17/17 03:11 Exam Initial Vital Signs Temp Pulse Resp BP Pulse Ox 97.6 F 86 16 116/83 97 05/17/17 03:11 05/17/17 03:11 05/17/17 03:11 05/17/17 03:11 05/17/17 03:11 Results - Labs 05/18/17 04:35 05/18/17 04:35 Abnormal lab results Chloride 114 mEq/L (98-109) H 05/18/17 04:35 Glucose 107 mg/dL (70-99) H 05/18/17 04:35 Calcium 8.4 mg/dL (8.6-10.8) L 05/18/17 04:35 ALT 75 Units/L (0-55) H 05/17/17 06:18 Serum Total Protein 5.6 g/dL (6.0-8.3) L D 05/17/17 06:18 Albumin 3.1 g/dL (3.5-5.0) L D 05/17/17 06:18 Vancomycin Trough 9.7 mcg/mL (10-20) L 05/18/17 16:38 Diabetes panel 05/18/17 Range/Units 04:35 Sodium 143 (136-145) mEq/L Potassium 4.0 (3.5-4.5) mEq/L Chloride 114 H (98-109) mEq/L Carbon Dioxide 22 (19-29) mEq/L BUN 9 (8-26) mg/dL Creatinine 0.77 (0.72-1.25) mg/dL Glucose 107 H (70-99) mg/dL Calcium 8.4 L (8.6-10.8) mg/dL Calcium panel 05/18/17 Range/Units 04:35 Calcium 8.4 L (8.6-10.8) mg/dL Pituitary panel 05/18/17 Range/Units 04:35 Sodium 143 (136-145) mEq/L Potassium 4.0 (3.5-4.5) mEq/L Chloride 114 H (98-109) mEq/L Carbon Dioxide 22 (19-29) mEq/L BUN 9 (8-26) mg/dL Creatinine 0.77 (0.72-1.25) mg/dL Glucose 107 H (70-99) mg/dL Calcium 8.4 L (8.6-10.8) mg/dL Adrenal panel 05/18/17 Range/Units 04:35 Sodium 143 (136-145) mEq/L Potassium 4.0 (3.5-4.5) mEq/L Chloride 114 H (98-109) mEq/L Carbon Dioxide 22 (19-29) mEq/L BUN 9 (8-26) mg/dL Creatinine 0.77 (0.72-1.25) mg/dL Glucose 107 H (70-99) mg/dL Calcium 8.4 L (8.6-10.8) mg/dL All other labs normal. - Attending Attestation I have personally performed a face to face evaluation on this patient. I have reviewed and agree with the care plan. History and Exam by me shows: The patient is seen and evaluated with the clinical nurse practitioner. It looks like he has previously had incision and drainage but has extension of the abscess medially. This will require repeat incision and drainage. The patient' s cares discussed the clinical nurse practitioner as well as the plan for extending the incision and drainage site. Ezra Patel MD FACS
[2017-05-18] MEDS ORDERED: Lidocaine 1% 20 ML MDV INFILT ONE (14:30)
[2017-05-18] MEDS ORDERED: *HR* Morphine 2 MG/ML SYRINGE IVP ONE (14:43)
--- NOTE | 2017-05-18 15:09 | General Surgery Procedure Note ---
Date of procedure: 05/18/17 Pre-op diagnosis: Right antecubital abscess Post-op diagnosis: same Procedure: After informed consent was obtained and timeout completed, the patient's right arm was prepped and draped. The area was localized with 15 ML's of 1%lidocaine. After achieving appropriate localization, the abscess cavity was opened with the use of a cotton-tipped applicator. There was immediate return of a moderate amount of purulent drainage. Gram stain, aerobic, and anaerobic cultures were obtained. The cavity was flushed using 20 MLs of saline and then packed with 1/ 4 inch iodoform gauze and covered with a dry dressing. Complications: None Anesthesia: local Surgeon: Merced Goode Estimated blood loss (cc): 0 Pathology: other (Gram stain, aerobic culture, anaerobic culture) Condition: stable Disposition: no change
[2017-05-18] MEDS: Vancomycin 1,500 MG in D5% in Water 250 ML IVPB SCH (18:04)
[2017-05-18] MEDS: Sennosides 8.6 MG TABLET PO SCH (20:04)
[2017-05-19] MEDS: Ibuprofen 800 MG TABLET PO SCH ×2 (00:29→09:23)
[2017-05-19] MEDS: *HR* Morphine 2 MG/ML SYRINGE IVP PRN ×3 (00:29→09:29)
[2017-05-19] MEDS: Piperacillin/Tazobactam 3.375 GM in D5% in Water (Mini-Bag+) 100 ML IVPB SCH (04:37)
[2017-05-19 04:46] LABS: Basophils % 0.3 %; Eosinophils # 0.5 K/mcL (0.0-0.6); Eosinophils % 6.1 %; Hematocrit 38.1 % (37.5-50.1); Immature Granulocytes % 0.8 % (0-4); Lymphocytes # 1.8 K/mcL (0.6-4.6); Lymphocytes % 22.8 %; Mean Corpuscular HGB Conc 34.1 g/dL (31.6-35.5); Mean Corpuscular Hemoglobin 30.4 pg (28.0-33.3); Mean Corpuscular Volume 89.2 fL (83.0-100.0); Mean Platelet Volume 9.2 fL (9.4-12.4); Monocytes # 0.6 K/mcL (0.0-1.3); Monocytes % 7.4 %; Neutrophils # 4.9 K/mcL (1.6-8.9); Platelet Count 213 K/mcL (140-400); Red Blood Count 4.27 M/mcL (4.19-5.50); Red Cell Distribution Width 13.2 % (11.5-14.5); Segmented Neutrophils % 62.6 %
[2017-05-19 04:59] LABS: BUN/Creatinine Ratio 13 (6-26); Blood Urea Nitrogen 10 mg/dL (8-26); Calcium 8.5 mg/dL (8.6-10.8); Carbon Dioxide 24 mEq/L (19-29); Chloride 110 mEq/L (98-109); Glucose 121 mg/dL (70-99); Osmolality,Calculated 296 (280-300); Sodium 143 mEq/L (136-145); eGFR For African Americans > 60 (> 60); eGFR For Non-African Americans > 60 (> 60)
[2017-05-19] MEDS: Vancomycin 1,500 MG in D5% in Water 250 ML IVPB SCH (06:43)
[2017-05-19 07:46] VITALS: BP 116/70
--- NOTE | 2017-05-19 08:50 | Discharge Summary ---
<MilagrosSae julio - Last Filed: 05/19/17 09:21> Date of Encounter: 05/19/17 Time of Encounter: 08:45 - Discharge Diagnosis (1) Abscess of right arm Priority: Primary Status: Acute Comments: Improvement in swelling and erythema at right AC region s/p I&Ds on 05/16/17 and 05/18/17 No leukocytosis, ESR 10, CRP 8 TTE reveals LVEF 60%, no valvular dysfunction or vegetations. Anticipate ARMANDO if blood cultures positive to r/o endocarditis Blood and wound cultures show no growth to date. Gram stain shows moderate gram positive cocci Contact precautions Continue Ibuprofen, Tylenol, Ultram as needed for break through pain Allow right arm wound to heal by secondary intention. Continued dressing changes and packing wound. Completed 3 days of Vanc and Zosyn IV Discharge on oral Doxycycline for 10 more days Follow up with surgery in 1 week (2) Methamphetamine abuse Priority: Primary Status: Chronic Comments: Counselled on IVDU cessation (3) Nicotine dependence Priority: Primary Status: Chronic Comments: Continue Nicotine patch. Tobacco cessation discussed Qualifiers: Nicotine product type: cigarettes Substance use status: uncomplicated Qualified Code(s): F17.210 - Nicotine dependence, cigarettes, uncomplicated (4) DVT prophylaxis Priority: Primary Status: Acute Comments: Encourage ambulation. - Discharge Medications Prescriptions: Ketorolac [Toradol] 10 mg PO Q8HR PRN #30 tablet PRN Reason: Severe Pain Doxycycline Monohydrate [Mondoxyne Nl] 100 mg PO BID #20 capsule Nicotine Patch [Nicoderm] 21 mg TD DAILY #30 patch.td24 Home Medications: Acetaminophen [Tylenol] 650 mg PO Q6HR PRN tablet 05/19/17 [Rx] Doxycycline Monohydrate [Mondoxyne Nl] 100 mg PO BID #20 capsule 05/19/17 [Rx] Ibuprofen [Motrin] 800 mg PO Q8HR tablet 05/19/17 [Rx] Ketorolac [Toradol] 10 mg PO Q8HR PRN #30 tablet 05/19/17 [Rx] Nicotine Patch [Nicoderm] 21 mg TD DAILY #30 patch.td24 05/19/17 [Rx] Allergies/Adverse Reactions: 3 Allergy/AdvReac Type Severity Reaction Status Date / Time No Known Allergies Allergy Verified 05/16/17 21:06 Procedures/tests Complete & Pending: Procedures Performed prior 72 hours Category Date Time Status CT elbow RT w con [CT] Stat Cat Scan 05/18/17 11:00 Draft EV echocardiogram Routine Y 05/17/17 03:26 Completed Pending Tests Category Date Time Status Culture,Blood [BC] Stat Lab 05/17/17 03:28 Incomplete Date of admission: 05/17/17 03:02 Primary care physician: PCP NONE Consults: 05/17/17 12:09 Consult to Banquet Supervisor [CONS] Routine Reason for SW Consult: IVDU; Substance Abuse 05/17/17 14:24 Consult to Wound Care [CONS] Stat Reason for Consult: eval and treat, right arm abscess Call Completed: No 05/18/17 13:35 Consult to Surgery [CONS] Routine Consulting Provider: [facility] Reason for Consult: Antecubital abscess Time Notified: 13:30 Call Completed: Yes Discharging clinician: Sae Davidson Anticipated date of discharge: 05/19/17 - Patient Status Disposition: Left Against Medical Advice Condition: Good Functional capacity at discharge: independent ambulation Overall status at discharge: patient is progressing back to baseline - Discharge Instructions Instructions: Doxycycline (By mouth), Nicotine (Absorbed through the skin), Ketorolac (By mouth) Follow Up With: Bety Cruz, SAFETY TECHNICIAN [Advanced Practice Nurse] - 05/25/17 1:30 pm Additional Instructions: Continue Ibuprofen, Tylenol, and Ultram as needed for break through pain Continued dressing changes and packing wound Continue oral Doxycycline for 10 more days Follow up with surgery in 1 week - Diet and Activity Activity: increase activity as tolerated Diet: regular diet Hospital course: Mr. Alonzo is a 36 year old male with h/o IV drug use ( last used on ) presented to the [place] [facility] with painful swelling of right AC fossa. He noted that he has been experiencing swelling for 1 day at the site where he injected drugs. He denied any fevers, chills, nausea or vomiting. No leukocytosis, ESR 10, CRP 8. He experienced some chest pain while at [place] and was transferred to [facility] for further evaluation. He had improvement in swelling and erythema at right AC region s/p I&Ds on 05/16/17 and 05/18/17. CT right arm revealed antecubital soft tissue defect and underlying abscess measuring 3.2 x 2.7x 3.8 cm with surrounding cellulitis. The abscess involves an adjacent superficial vein. TTE revealed LVEF 60%, no valvular dysfunction or vegetations. Anticipate ARMANDO if blood cultures positive to r/o endocarditis. Blood and wound cultures show no growth to date. Gram stain shows moderate gram positive cocci. He completed 3 days of Vanc and Zosyn IV. He was discharge on oral Doxycycline for 10 more days. Continue Ibuprofen, Tylenol, Ultram as needed for break through pain. Allow right arm wound to heal by secondary intention. Continued dressing changes and packing wound. Follow up with surgery in 1 week - Time Spent with Patient Total time spent providing and/or coordinating discharge services: - Constitutional Vitals: Temp Pulse Resp BP Pulse Ox 97.8 F 64 16 116/70 98 05/19/17 07:45 05/19/17 07:45 05/19/17 07:45 05/19/17 07:45 05/19/17 07:45 General appearance: Present: cooperative, mild distress, A&O X 3, answers questions appropriately - Head Head exam: Present: atraumatic, normal inspection, normocephalic - Eye Eye exam: Present: EOMI, PERRL - ENT ENT exam: Present: mucous membranes moist, normal oropharynx - Neck Neck exam general surgery: Present: normal inspection, supple. Absent: tenderness - Respiratory Respiratory exam: Present: CTAB. Absent: respiratory distress, tachypnea - Cardiovascular Cardiovascular exam: Present: RRR, +S1, +S2 - GI/Abdominal GI/Abdominal exam: Present: normal bowel sounds, soft. Absent: distended, tenderness - Extremities Exam Additional comments: 3cm incision right AC region with 1cm Iodaform packing in place, no purulent drainage or bleeding. Mild serosanguinous drainage on dressing. 10cm x 12cm area of surrounding erythema with border outlined by skin marker, minimal proximal streaking, no lymphademopathy, mild decreased ROM right elbow secondary to pain. No Osler nodes, [place] lesions, or splinter hemorrhages. Multiple tattoos, prior surgical incision well healed or right ankle hardware insertion site - Incison Incision: Present: red, swollen, erythema, open Comments: 3cm incision right AC region with 1cm Iodaform packing in place, no purulent drainage or bleeding. Mild serosanguinous drainage on dressing. 10cm x 12cm area of surrounding erythema with border outlined by skin marker, minimal proximal streaking, no lymphademopathy, mild decreased ROM right elbow secondary to pain - Back Exam Back exam: Present: normal inspection. Absent: paraspinal tenderness, tenderness - Neurological Exam Neurological exam: Present: alert, oriented X3, no focal deficits, strengths equal and symetr throughout. Absent: speech deficit - Psychiatric Psychiatric exam: Present: flat affect, normal mood - Skin Skin exam: Present: erythema, warm Additional comments: 3cm incision right AC region with 1cm Iodaform packing in place, no purulent drainage or bleeding. Mild serosanguinous drainage on dressing. 10cm x 12cm area of surrounding erythema with border outlined by skin marker, minimal proximal streaking, no lymphademopathy, mild decreased ROM right elbow secondary to pain. No Osler nodes, [place]ay lesions, or splinter hemorrhages. Multiple tattoos, prior surgical incision well healed or right ankle hardware insertion site <Corey Alvarado - Last Filed: 05/19/17 15:22> Date of Encounter: 05/19/17 - Discharge Diagnosis (1) Abscess of right arm Status: Acute (2) Methamphetamine abuse Status: Chronic (3) Tobacco abuse Priority: Secondary Status: Chronic Procedures/tests Complete & Pending: Procedures Performed prior 72 hours Category Date Time Status CT elbow RT w con [CT] Stat Cat Scan 05/18/17 11:00 Draft EV echocardiogram Routine Y 05/17/17 03:26 Completed Date of admission: 05/17/17 03:02 Primary care physician: PCP NONE Consults: 05/17/17 12:09 Consult to Banquet Supervisor [CONS] Routine Reason for SW Consult: IVDU; Substance Abuse 05/17/17 14:24 Consult to Wound Care [CONS] Stat Reason for Consult: eval and treat, right arm abscess Call Completed: No 05/18/17 13:35 Consult to Surgery [CONS] Routine Consulting Provider: [facility] Reason for Consult: Antecubital abscess Time Notified: 13:30 Call Completed: Yes Hospital course: Mr. Alonzo is a 36 year old male - Time Spent with Patient Total time spent providing and/or coordinating discharge services: 39min - Constitutional Vitals: Temp Pulse Resp BP Pulse Ox 97.8 F 64 16 116/70 98 05/19/17 07:45 05/19/17 07:45 05/19/17 07:45 05/19/17 07:45 05/19/17 07:45 - Attending Attestation I examined this patient and my medical decision-making was reviewed with the Resident Physician on 05/19/17. I agree with the documented findings, disposition and treatment plan as described except to the extent set forth below. Mr. Alonzo has been admitted for abscess in R antecubital space. He has had I& D. His cultures were negative to this point. Exam Alert Dressing intact No wheeze No edema Plan D/C after abx arranged. Prior to completing discharge pt eloped from building. Peripheral IV was still in place.
[2017-05-19] MEDS: Nicotine 21 MG PATCH.TD24 TD SCH (09:23)
[2017-05-19 09:53] LABS: Hepatitis B Surface Antigen Nonreactive (Nonreactive)
[2017-05-20 11:14] LABS: Hepatitis A Antibody IgM Nonreactive (Nonreactive); Hepatitis B Core IgM Nonreactive (Nonreactive)
[2017-05-20 11:15] LABS: Hepatitis C Virus Antibody Reactive (Nonreactive)
--- NOTE | 2017-05-24 17:10 | Event Note ---
Date of Encounter: 05/24/17 Time of Encounter: 17:08 Serology 05/19/17 05/17/17 Range/Units 08:06 04:09 Nasal Screen MRSA (PCR) Negative (Negative) Hepatitis A IgM Ab Nonreactive (Nonreactive) Hep Bs Antigen Nonreactive (Nonreactive) Hep B Core IgM Ab Nonreactive (Nonreactive) Hepatitis C Ab Screen Reactive H (Nonreactive) Serology results positive for Hepatitis C. Patient has a history of IVDU and non -compliance. Patient was called on multiple attempts today and a voicemail was left regarding positive Hepatitis C results and the need for follow up labs and treatment with PCP office.
== END 2017-05-19 11:00 | disposition left against medical advice (07) ==
LOC: 2NENU → SUATTDRO 03:02
PROVIDERS: ADMIT Internal Medicine; ATTEND Internal Medicine

== ENCOUNTER 2019-06-15 11:08 | Observation (INO) ==
[2019-06-15] MEDS ORDERED: *HR* LORazepam 1 MG TABLET PO ONE ×2 (11:19→12:52)
[2019-06-15 14:48] LABS: Bilirubin,Urine Small (Negative); Blood,Urine Moderate (Negative); Clarity,Urine Clear (Clear); Color,Urine Dark Yellow (Yellow); Glucose,Urine (UA) Normal (Normal); Ketones,Urine 15 mg/dL (Negative); Leukocyte Esterase,Urine Negative (Negative); Nitrite,Urine Negative (Negative); Protein,Urine Negative (Neg-Trace); Specific Gravity,Urine 1.029 (1.010-1.025); Urobilinogen,Urine Normal (Normal)
[2019-06-15 14:52] LABS: Bacteria,Urine None Seen per hpf (None-Few); Hyaline Casts,Urine None Seen per lpf (None-Few); RBC,Urine 15-30 per hpf (0-3); Squamous Epithelial Cell,Urine Many per lpf (None-Few); WBC,Urine 0-3 per hpf (0-3)
[2019-06-15 14:53] LABS: Basophils % 0.1 %; Eosinophils # 0.2 K/mcL (0.0-0.6); Eosinophils % 1.9 %; Hematocrit 41.9 % (37.5-50.1); Hemoglobin 14.6 g/dL (12.9-16.9); Immature Granulocytes % 0.4 % (0-4); Lymphocytes # 2.5 K/mcL (0.6-4.6); Lymphocytes % 23.4 %; Mean Corpuscular HGB Conc 34.8 g/dL (31.6-35.5); Mean Corpuscular Hemoglobin 31.3 pg (28.0-33.3); Mean Corpuscular Volume 89.9 fL (83.0-100.0); Mean Platelet Volume 9.4 fL (9.4-12.4); Monocytes # 0.8 K/mcL (0.0-1.3); Platelet Count 273 K/mcL (140-400); Red Blood Count 4.66 M/mcL (4.19-5.50); Red Cell Distribution Width 12.4 % (11.5-14.5); Segmented Neutrophils % 66.2 %; White Blood Count 10.5 K/mcL (4.3-11.1)
[2019-06-15 14:58] LABS: Amphetamine Screen,Urine Positive ng/mL (Cutoff=1000); Barbiturate Screen,Urine Negative ng/mL (Cutoff=200); Benzodiazepines Screen,Urine Negative ng/mL (Cutoff=200); Cannabinoid Screen,Urine Negative ng/mL (Cutoff = 50); Cocaine Screen,Urine Negative ng/mL (Cutoff= 300); Opiate Screen,Urine Negative ng/mL (Cutoff=300); Phencyclidine Screen,Urine Negative ng/mL (Cutoff=25)
[2019-06-15 15:14] LABS: BUN/Creatinine Ratio 25 (6-26); Blood Urea Nitrogen 22 mg/dL (6-20); Calcium 9.1 mg/dL (8.6-10.3); Carbon Dioxide 26 mEq/L (23-29); Chloride 100 mEq/L (98-107); Creatine Kinase 1385 Units/L (30-223); Glucose 112 mg/dL (70-105); Osmolality,Calculated 286 (280-300); Sodium 136 mEq/L (136-145); eGFR For African Americans > 60 (> 60); eGFR For Non-African Americans > 60 (> 60)
[2019-06-15] MEDS: 0.9 % Sodium Chloride 1,000 ML IVC SCH ×2 (15:41→16:58)
[2019-06-15] MEDS ORDERED: Ondansetron 4 MG/2 ML VIAL IVP PRN (16:44)
[2019-06-15] MEDS ORDERED: Mag Hydrox/Al Hydrox/Simeth 30 ML UDC PO PRN (16:44)
[2019-06-15] MEDS ORDERED: MOM Conc 10 ML UD.LIQ PO PRN (16:44)
[2019-06-15] MEDS ORDERED: Acetaminophen 325 MG TABLET PO PRN (16:44)
[2019-06-15] MEDS ORDERED: Naloxone 0.4 MG/ML INJ IVP PRN (16:44)
[2019-06-15] MEDS ORDERED: *HR* Promethazine 25 MG/ML VIAL IVP PRN (16:44)
[2019-06-15] MEDS ORDERED: *HR* LORazepam 2 MG/ML VIAL IVP PRN (17:08)
[2019-06-15] MEDS: *HR* Heparin 5,000 UNIT/ML VIAL SQ SCH (17:44)
[2019-06-16] MEDS: *HR* Heparin 5,000 UNIT/ML VIAL SQ SCH ×2 (04:44→17:02)
[2019-06-16] MEDS: OLANZapine 10 MG TAB.RAPDIS PO SCH (09:36)
[2019-06-16] MEDS: Nicotine 21 MG PATCH.TD24 TD SCH (09:37)
[2019-06-16 09:59] LABS: Basophils % 0.2 %; Eosinophils # 0.3 K/mcL (0.0-0.6); Eosinophils % 4.5 %; Hematocrit 40.6 % (37.5-50.1); Hemoglobin 14.1 g/dL (12.9-16.9); Immature Granulocytes % 0.3 % (0-4); Lymphocytes # 1.4 K/mcL (0.6-4.6); Lymphocytes % 24.1 %; Mean Corpuscular HGB Conc 34.7 g/dL (31.6-35.5); Mean Corpuscular Volume 89.2 fL (83.0-100.0); Mean Platelet Volume 9.2 fL (9.4-12.4); Monocytes # 0.4 K/mcL (0.0-1.3); Monocytes % 6.7 %; Neutrophils # 3.8 K/mcL (1.6-8.9); Platelet Count 221 K/mcL (140-400); Red Blood Count 4.55 M/mcL (4.19-5.50); Red Cell Distribution Width 12.6 % (11.5-14.5); Segmented Neutrophils % 64.2 %
[2019-06-16 10:09] LABS: BUN/Creatinine Ratio 15 (6-26); Blood Urea Nitrogen 11 mg/dL (6-20); Calcium 8.4 mg/dL (8.6-10.3); Carbon Dioxide 24 mEq/L (23-29); Chloride 107 mEq/L (98-107); Creatine Kinase 508 Units/L (30-223); Glucose 93 mg/dL (70-105); Osmolality,Calculated 281 (280-300); Sodium 136 mEq/L (136-145); eGFR For African Americans > 60 (> 60); eGFR For Non-African Americans > 60 (> 60)
[2019-06-17] MEDS: *HR* Heparin 5,000 UNIT/ML VIAL SQ SCH ×2 (04:06→16:50)
[2019-06-17] MEDS: Nicotine 21 MG PATCH.TD24 TD SCH (08:38)
[2019-06-17] MEDS: OLANZapine 10 MG TAB.RAPDIS PO SCH (08:38)
[2019-06-18] MEDS: *HR* Heparin 5,000 UNIT/ML VIAL SQ SCH (02:21)
[2019-06-18] MEDS: Nicotine 21 MG PATCH.TD24 TD SCH (09:42)
[2019-06-18] MEDS: OLANZapine 10 MG TAB.RAPDIS PO SCH (09:43)
[2019-06-18 12:51] VITALS: BP 122/82
== END 2019-06-18 15:35 | disposition home or self-care (01) ==
LOC: EMEROOARM 11:08 → 3BNU 11:08
PROVIDERS: ADMIT Internal Medicine; ATTEND Internal Medicine